=== PATIENT | male | born 1970 | race African-American/Black ===

== ENCOUNTER 2017-01-16 13:37 | Emergency (ER) | payer OTHER ==
[~2017-01-16] VITALS: Ht 180.3 cm; Wt 116.8 kg
[2017-01-16 16:01] LABS: HEMATOCRIT 41.1 % (38.0-50.0); MCH 25.6 PG (29.0-34.0); MCHC 32.1 G/DL (30.0-36.0); MCV 79.7 FL (86-99); MEAN PLAT.VOLUME 9.8 uM^3 (9.0-12.4); PLATELET COUNT 314 K/uL (156-360); RBC DIS.WIDTH-CV 13.8 % (11.8-14.6); RBC DIS.WIDTH-SD 39.7 % (39-53); RED BLOOD COUNT 5.16 M/uL (4.00-5.50); WHITE BLOOD COUNT 12.8 K/uL (4.1-10.2)
[2017-01-16 16:10] LABS: CHLORIDE 105 mEq/L (99-109); POTASSIUM 3.6 mEq/L (3.7-5.4); SODIUM 141 mEq/L (136-147)
[2017-01-16 16:12] LABS: GLUCOSE 105 mg/dL (70-99)
[2017-01-16 16:14] LABS: ANION GAP 12 MEQ/L (2-14); TOTAL BILIRUBIN 1.8 mg/dL (0.0-1.0)
[2017-01-16 16:16] LABS: ALKALINE PHOSPHATASE 57 IU/L (3-129); GFR ESTIMATE (CALCULATED) > 59 mL/min/
[2017-01-16 16:17] LABS: UREA NITROGEN (BUN) 13 mg/dL (9-23)
[2017-01-16 16:18] LABS: DIRECT BILIRUBIN 0.6 mg/dL (0.0-0.3)
[2017-01-16 16:19] LABS: LIPASE 8 U/L (1.0-51.0)
[2017-01-16 17:02] LABS: ADD MIUA? YES; BILIRUBIN NEGATIVE; BLOOD LARGE; COLOR YELLOW ((YELLOW)); GLUCOSE (STRIP) NEGATIVE; KETONES 5; LEUKOCYTES SMALL; NITRITE NEGATIVE; PROTEIN (STRIP) 30; SPECIFIC GRAVITY 1.014 (1.000-1.030)
[2017-01-16 17:10] LABS: BACTERIA RARE /HPF; EPITHELIAL CELLS RARE /HPF; MUCUS 1+ /LPF; RED BLOOD CELLS TNTC /HPF (0-5); UCUL ADDED? NO; WHITE BLOOD CELLS 20-30 /HPF (0-5)
[2017-01-16] MEDS ORDERED: ZOFRAN4 MG PO (17:56)
[2017-01-16] MEDS ORDERED: CIPRO500 MG PO (17:56)
[2017-01-16 18:18] VITALS: BP 167/91
== END 2017-01-16 18:19 | disposition home or self-care (01) ==
LOC: EME 13:37
PROVIDERS: Emergency Medicine
DX: N39.0 Urinary tract infection, site not specified (principal); R11.2 Nausea with vomiting, unspecified; R19.7 Diarrhea, unspecified; E86.0 Dehydration
CPT/HCPCS: 74176; 80048; 80076; 81003; 83690; 85027; 99281; 99284; J2405; J7030

== ENCOUNTER 2017-08-25 19:43 | Emergency (ER) | payer OTHER ==
[~2017-08-25] VITALS: Ht 180.3 cm; Wt 116.2 kg
[~2017-08-25 19:43] MED LIST: CIPRO500 MG PO; ZOFRAN4 MG PO
[2017-08-25 21:24] LABS: BASOPHIL (%) 0.2 % (0-1); EOSINOPHIL (%) 1.4 % (0-5); EOSINOPHIL COUNT 0.1 K/uL (0-0.3); HEMATOCRIT 42.8 % (38.0-50.0); HEMOGLOBIN 13.9 G/DL (12.5-16.6); IMMATURE GRANULOCYTE (%) 0.4 % (0.0-0.7); LYMPHOCYTE COUNT 2.7 K/uL (1.0-2.8); MCH 25.3 PG (29.0-34.0); MCHC 32.5 G/DL (30.0-36.0); MONOCYTE (%) 11.9 % (3-12); MONOCYTE COUNT 0.6 K/uL (0-0.8); NEUTROPHIL (%) 32.1 % (45-76); NEUTROPHIL COUNT 1.6 K/uL (1.8-6.4); PLATELET COUNT 310 K/uL (156-360); RBC DIS.WIDTH-CV 13.8 % (11.8-14.6); RED BLOOD COUNT 5.49 M/uL (4.00-5.50)
[2017-08-25 21:31] LABS: CHLORIDE 109 mEq/L (99-109); POTASSIUM 3.4 mEq/L (3.7-5.4); SODIUM 145 mEq/L (136-147)
[2017-08-25 21:32] LABS: MAGNESIUM 2.1 mg/dL (1.3-2.7)
[2017-08-25 21:33] LABS: GLUCOSE 110 mg/dL (70-99)
[2017-08-25 21:37] LABS: GFR ESTIMATE (CALCULATED) > 59 mL/min/ (58.99-99999)
[2017-08-25 21:38] LABS: UREA NITROGEN (BUN) 10 mg/dL (9-23)
[2017-08-25 21:43] LABS: TROP-I INTERPRETATION NEGATIVE; TROPONIN-I < 0.01 ng/mL (0.0-0.30)
[2017-08-25] MEDS ORDERED: VENTOLIN HFA18 GM IH (22:28)
[2017-08-25 22:41] VITALS: BP 155/96
== END 2017-08-25 22:43 | disposition home or self-care (01) ==
LOC: EME → EDBD 19:43 → EME 19:43
PROVIDERS: Emergency Medicine
DX: J98.01 Acute bronchospasm (principal); B34.9 Viral infection, unspecified; R00.1 Bradycardia, unspecified; R94.31 Abnormal electrocardiogram [ECG] [EKG]
CPT/HCPCS: 71046; 80048; 83735; 84484; 85025; 93005; 99281; 99284